=== PATIENT | female | born 1950 | race Caucasian/White ===

== ENCOUNTER → 2020-03-23 17:06 | Outpatient (CLI) | payer BC, SELFPAY ==
--- NOTE | ~2020-03-23 | MM_ITS ---
EXAMINATION: MM screening shelly BI w td HISTORY: Screening mammogram TECHNIQUE: Craniocaudal and mediolateral oblique 3-D tomosynthesis images were obtained and synthetic 2-D images were generated. Bilateral rotated lateral cc views. CAD analysis was submitted and interp reted. COMPARISON: 12/20/2018, 11/27/2017 bilateral digital screening mammogram examinations 09/07/2016 diagnostic right digital mammogram and limited right breast ultrasound 08/22/2016 bilateral digital screening mammogram BREAST PARENCHYMAL COMPOSITION: There are scattered areas of fibroglandular density. FINDINGS: There is no evidence of suspicious mass, calcification, or architectural distortion to sugg est malignancy in either breast. There has been no suspicious interval change. IMPRESSION: 1. No mammographic evidence of malignancy. 2. Recommend routine screening mammography in one year. BI-RADS Category 1: Negative Reviewed, dictated and finalized at location A. ENT WORKER
== END ==
PROVIDERS: Visit Provider Obstetrics & Gynecology Gynecology
DX: Z12.31 Encounter for screening mammogram for malignant neoplasm of breast (principal)
CPT/HCPCS: 77063; 77067

== ENCOUNTER → 2020-06-11 13:22 | Outpatient (CLI) | payer BC, SELFPAY ==
--- NOTE | ~2020-06-11 | DEXA_ITS ---
Bone Density Report Name: Elva Magaña Age: 70 Sex: Female Ethnicity: White Date of : 1950 Indication: osteopenia; monitoring treatment; hyperparathyroidism; height loss; postmenopausal Referring Provider: DEEPAK, LAWSON Study: Bone densitometry was performed. Exam Date: June 11, 2020 Accession number: [id number] Bone Density: Region BMD T-score Z-score Classification AP Spine (L1-L4) 0.935 -1.0 1.2 Normal Femoral Neck (Left) 0.677 -1.5 0.4 Osteopenia Total Hip (Left) 0.790 -1.2 0.4 Osteopenia Femoral Neck (Right) 0.651 -1.8 0.1 Osteopenia Total Hip (Right) 0.797 -1.2 0.4 Osteopenia Total Hip Mean 0.794 -1.2 0.4 Osteopenia World Health Organization criteria for BMD impression classify patients as: Normal (T-score at or above -1.0), Osteopenia (T-score between -1.0 and -2.5), or Osteoporosis (T-score at or below -2.5). 10-year Fracture Risk: FRAX not reported because: Treated for osteoporosis Previous Exams: Region Exam Age BMD T-score BMD Change BMD Change Date g/cm2 vs Baseline vs Previous AP Spine(L1-L4) 06/11/2020 70 0.935 -1.0 0.171* 0.035* 04/18/2018 68 0.900 -1.3 0.136* 0.029* 04/12/2016 66 0.871 -1.6 0.107* 0.046* 10/28/2013 63 0.825 -2.0 0.061* 0.052* 10/17/2011 61 0.773 -2.5 0.009 -0.026* 07/10/2009 59 0.799 -2.3 0.035* 0.035* 06/02/2008 58 0.764 -2.6 Total Hip(Left) 06/11/2020 70 0.790 -1.2 0.076* 0.034* 04/18/2018 68 0.756 -1.5 0.041* -0.001 04/12/2016 66 0.756 -1.5 0.042* 0.023 10/28/2013 63 0.733 -1.7 0.019 0.007 10/17/2011 61 0.726 -1.8 0.012 0.002 07/10/2009 59 0.724 -1.8 0.009 0.009 06/02/2008 58 0.714 -1.9 Total Hip(Right) 06/11/2020 70 0.797 -1.2 0.072* 0.025 04/18/2018 68 0.773 -1.4 0.047* -0.007 04/12/2016 66 0.779 -1.3 0.054* 0.024 10/28/2013 63 0.755 -1.5 0.030* -0.006 10/17/2011 61 0.761 -1.5 0.036* 0.003 07/10/2009 59 0.758 -1.5 0.033* 0.033* 06/02/2008 58 0.726 -1.8 *Denotes significance at 95% confidence level, LSC for AP Spine = 0.022 g/cm2, LSC for Total Hip = 0.027 g/cm2 Clinical Information Provided by Patient: Tha hollis
== END ==
PROVIDERS: Visit Provider Nurse Practitioner
DX: Z78.0 Asymptomatic menopausal state (principal); M85.89 Other specified disorders of bone density and structure, multiple sites
CPT/HCPCS: 77080

== ENCOUNTER 2021-02-10 11:06 | Outpatient (CLI) | payer BC, SELFPAY ==
--- NOTE | ~2021-02-10 | NM_ITS ---
EXAMINATION: NM parathyroid w imaging DATE: 02/10/2021 14:31 INDICATION: Hyperparathyroidism TECHNIQUE: 20.5 mCi Tc99m tetrofosmin (Myoview) was administered by intravenous route. Anterior image s of the neck were obtained at 10 minutes and 2 hours. Additional delayed SPECT images were obtained and reconstructed in axial, coronal and sagittal planes.. COMPARISON: None. FINDINGS/IMPRESSION: There is no focus of persistent activity in the area of the thyroid or mediastinum to suggest parathy roid adenoma. Reviewed, dictated and finalized at location A.
== END 2021-02-10 11:07 | disposition home or self-care (01) ==
LOC: ANHIMG 11:06
PROVIDERS: Visit Provider Internal Medicine Endocrinology, Diabetes & Metabolism
DX: E21.3 Hyperparathyroidism, unspecified (principal); M81.0 Age-related osteoporosis without current pathological fracture; R79.89 Other specified abnormal findings of blood chemistry
CPT/HCPCS: 78070; A9500

== ENCOUNTER → 2021-05-04 15:16 | Outpatient (CLI) | payer BC, SELFPAY ==
--- NOTE | ~2021-05-04 | MM_ITS ---
EXAMINATION: MM screening shelly BI w td HISTORY: Screening mammogram, family history of breast cancer in her sister. TECHNIQUE: Craniocaudal and mediolateral oblique 3-D tomosynthesis images were obtained and synthetic 2-D images were generated. CAD analysis was submitted and interpreted. COMPARISON: 03/23/2020, 12/20/2018, 11/27/2017 BREAST PARENCHYMAL COMPOSITION: The breasts are heterogeneously dense, which may obscure small masses . FINDINGS: There is no evidence of suspicious mass, calcification, or architectural distortion to sugg est malignancy in either breast. There has been no suspicious interval change. IMPRESSION: 1. No mammographic evidence of malignancy. 2. Recommend routine screening mammography in one year. BI-RADS Category 1: Negative Reviewed, dictated and finalized at location A. STUD RIVETER
== END ==
PROVIDERS: Visit Provider Nurse Practitioner
DX: Z12.31 Encounter for screening mammogram for malignant neoplasm of breast (principal)
CPT/HCPCS: 77063; 77067

== ENCOUNTER → 2022-08-04 10:38 | Outpatient (CLI) | payer BC, SELFPAY ==
--- NOTE | ~2022-08-04 | MM_ITS ---
EXAMINATION: MM screening shelly BI w td HISTORY: Screening TECHNIQUE: Craniocaudal and mediolateral oblique 3-D tomosynthesis images were obtained and synthetic 2-D images were generated. CAD analysis was submitted and interpreted. COMPARISON: Comparison to multiple prior studies sequentially, with oldest reviewed study dated 08/22. BREAST PARENCHYMAL COMPOSITION: Breast composed of scattered areas of fibroglandular density FINDINGS: There is no evidence of suspicious mass, calcification, or architectural distortion to sugg est malignancy in either breast. There has been no suspicious interval change. IMPRESSION: 1. No mammographic evidence of malignancy. 2. Recommend routine screening mammography in one year. BI-RADS Category 1: Negative Reviewed, dictated and finalized at location A.
--- NOTE | ~2022-08-04 | DEXA_ITS ---
Bone Density Report Name: NORTH DIAS Age: 72 Sex: Female Ethnicity: White Date of : 1950 Indication: osteopenia; postmenopausal; monitoring treatment; Referring Provider: DEEPAK, LAWSON Study: Bone densitometry was performed. Exam Date: August 04, 2022 Accession number: [id number] Bone Density: Region BMD T-score Z-score Classification AP Spine (L1-L4) 1.009 -0.3 2.0 Normal Femoral Neck (Left) 0.681 -1.5 0.5 Osteopenia Total Hip (Left) 0.813 -1.1 0.7 Osteopenia Femoral Neck (Right) 0.675 -1.6 0.5 Osteopenia Total Hip (Right) 0.824 -1.0 0.8 Normal Total Hip Mean 0.819 -1.1 0.8 Osteopenia World Health Organization criteria for BMD impression classify patients as: Normal (T-score at or above -1.0), Osteopenia (T-score between -1.0 and -2.5), or Osteoporosis (T-score at or below -2.5). 10-year Fracture Risk: FRAX not reported because: Treated for osteoporosis Previous Exams: Region Exam Age BMD T-score BMD Change BMD Change Date g/cm2 vs Baseline vs Previous AP Spine(L1-L4) 08/04/2022 72 1.009 -0.3 0.245* 0.074* 06/11/2020 70 0.935 -1.0 0.171* 0.035* 04/18/2018 68 0.900 -1.3 0.136* 0.029* 04/12/2016 66 0.871 -1.6 0.107* 0.046* 10/28/2013 63 0.825 -2.0 0.061* 0.052* 10/17/2011 61 0.773 -2.5 0.009 -0.026* 07/10/2009 59 0.799 -2.3 0.035* 0.035* 06/02/2008 58 0.764 -2.6 Total Hip(Left) 08/04/2022 72 0.813 -1.1 0.098* 0.022 06/11/2020 70 0.790 -1.2 0.076* 0.034* 04/18/2018 68 0.756 -1.5 0.041* -0.001 04/12/2016 66 0.756 -1.5 0.042* 0.023 10/28/2013 63 0.733 -1.7 0.019 0.007 10/17/2011 61 0.726 -1.8 0.012 0.002 07/10/2009 59 0.724 -1.8 0.009 0.009 06/02/2008 58 0.714 -1.9 Total Hip(Right) 08/04/2022 72 0.824 -1.0 0.098* 0.027 06/11/2020 70 0.797 -1.2 0.072* 0.025 04/18/2018 68 0.773 -1.4 0.047* -0.007 04/12/2016 66 0.779 -1.3 0.054* 0.024 10/28/2013 63 0.755 -1.5 0.030* -0.006 10/17/2011 61 0.761 -1.5 0.036* 0.003 07/10/2009 59 0.758 -1.5 0.033* 0.033* 06/02/2008 58 0.726 -1.8 *Denotes significance at 95% confidence level, LSC for AP Spine = 0.022 g/cm2, L
== END ==
PROVIDERS: PCP Nurse Practitioner; Visit Provider Nurse Practitioner
DX: Z12.31 Encounter for screening mammogram for malignant neoplasm of breast (principal); Z78.0 Asymptomatic menopausal state; M85.89 Other specified disorders of bone density and structure, multiple sites
CPT/HCPCS: 77063; 77067; 77080

== ENCOUNTER 2023-07-02 13:28 | Emergency (ER) | payer BC, SELFPAY ==
--- NOTE | ~2023-07-02 | XR_ITS ---
EXAMINATION: XR finger 1st RT min 2V DATE: 07/02/2023 13:43 INDICATION: Right thumb pain and injury. TECHNIQUE: 3 views of right thumb were obtained. COMPARISON: None. FINDINGS: Bone alignment is normal. There are chip fractures of tuft of first distal phalanx. There i s mild osteoarthritis of first carpometacarpal joint, first metacarpophalangeal joint, and first inte rphalangeal joint. IMPRESSION: 1. Chip fractures of tuft of first distal phalanx. Reviewed, dictated and finalized at location A. TAL MEDIA BUYER
[2023-07-02 13:35] VITALS: BP 151/83; PULSE 72; RESP 16; TEMP 36.9; O2SAT 100
--- NOTE | 2023-07-02 14:03 | ED.EXTPRO ---
HPI - Extremity Problem General Chief complaint: Extremity Injury, Upper Stated complaint: Bruised Thumb Time Seen by Provider: 07/02/23 13:52 Source: patient and RN notes reviewed Mode of arrival: ambulatory Limitations: no limitations History of Present Illness HPI Narrative: Patient presents to today complaining of a right thumb injury. Two days ago she tripped and fell in her garage, jamming her right thumb on the cement. She denies any current pain, but she has some bruising and discoloration at the tip of her finger in on the fingernail and wanted to come in for evaluation. She has been applying some Neosporin at the base of the fingernail. Related Data Home Medications Medication Instructions Recorded Confirmed denosumab 60 mg/mL subcutaneous 60 mg subcut [id number] 06/12/19 07/28/21 syringe (Prolia) cholecalciferol (vitamin D3) 50 50 mcg PO DAILY 07/28/21 07/28/21 mcg (2,000 unit) tablet estradiol 10 mcg vaginal tablet 10 mcg vaginal 2XW 07/28/21 07/28/21 (Vagifem) Allergies Allergy/AdvReac Type Severity Reaction Status Date / Time codeine Allergy Unknown Verified 01/07/14 09:27 shellfish derived Allergy Unknown Verified 01/07/14 09:32 SHELLFISH Allergy Mild Uncoded 06/27/13 17:43 White Fish Allergy Mild Uncoded 06/27/13 15:21 Review of Systems Review of Systems: CONSTITUTIONAL: Denies body aches, fever, chills, or sweats. EYES: Denies visual changes, redness, or discharge. ENT: Denies rhinorrhea, congestion, sore throat, or otalgia. CARDIOVASCULAR: Denies chest pain, palpitations, or edema. RESPIRATORY: Denies cough or dyspnea. GASTROINTESTINAL: Denies abdominal pain, nausea, vomiting, or diarrhea. GENITOURINARY: Denies dysuria or hematuria. SKIN: Denies rash, itching, or wounds. MUSCULOSKELETAL: + right thumb injury NEUROLOGIC: Denies headache, numbness, tingling, or weakness. PSYCH: Denies depression or anxiety. [facility] Past Medical History Medical History (Updated 07/02/23 @ 14:10 by Ramona Arreguin, CERTIFIED NUTRITIONIST, BC) Headache Osteoporosis Family History Family History Other Family history of cardiovascular disease Family history of osteoporosis Hypertension Social History Social History Smoking status: Never smoker Alcohol intake: current Comments At time of signature, I have reviewed and agree with nursing past medical, surgical, social and family history unless otherwise noted. Please see nursing chart for further information. There is no relevant family history pertinent to the presenting complaint Exam Narrative: GENERAL: Well-appearing, well-nourished, and in no acute distress. HEAD: Normocephalic, atraumatic. EYES: EOMI. No redness or drainage. Conjunctivae normal. ENT: Mucous membranes pink and moist. NECK: Normal AROM. CHEST: No respiratory distress. EXTREMITIES: Right thumb: Ecchymosis and edema to the distal phalanx. No tenderness. Distal sensation is intact. Capillary refill normal. She has some passive range of motion, but active range of motion is limited due to swelling. Fingernail has been slightly jammed into the cuticle. There is some dried blood at the base of the fingernail. The fingernail does still seem to be attached to the nail bed. Slight erythema to the cuticle area SKIN: Warm, dry, no rash. Capillary refill normal. Normal skin turgor. NEURO: No focal deficits. Alert and oriented x3. Gait steady. PSYCH: Normal affect. No signs of depression or anxiety. Course Course Level of Care: Express Care Visit Vital Signs Vital signs: Vital Signs Temperature 98.5 F 07/02/23 13:35 Pulse Rate 72 07/02/23 13:35 Respiratory Rate 16 07/02/23 13:35 Blood Pressure 151/83 H 07/02/23 13:35 Pulse Oximetry 100 07/02/23 13:35 Temperature 98.5 F 07/02/23 13:35 Pulse Rate 72 07/02/23 13:35 Respi
== END 2023-07-02 14:13 | disposition home or self-care (01) ==
PROVIDERS: Emergency Provider Nurse Practitioner
DX: S62.524A Nondisplaced fracture of distal phalanx of right thumb, initial encounter for closed fracture (principal); W01.0XXA Fall on same level from slipping, tripping and stumbling without subsequent striking against object, initial encounter; Y92.008 Other place in unspecified non-institutional (private) residence as the place of occurrence of the external cause
CPT/HCPCS: 73140; 99213; G0463

== ENCOUNTER 2023-10-25 14:12 | Outpatient (CLI) | payer BC, SELFPAY ==
--- NOTE | ~2023-10-25 | MM_ITS ---
EXAMINATION: MM screening shelly BI w td HISTORY: Screening mammogram, family history of breast cancer in her sister. TECHNIQUE: Craniocaudal and mediolateral oblique 3-D tomosynthesis images were obtained and synthetic 2-D images were generated. CAD analysis was submitted and interpreted. COMPARISON: 08/04/2022: 422, 03/23/2020 BREAST PARENCHYMAL COMPOSITION:Dense: The breasts are heterogeneously dense, which may obscure small masses. FINDINGS: No suspicious mass, calcification, or architectural distortion are identified in either michael ast to suggest malignancy. There has been no suspicious interval change. IMPRESSION: No mammographic evidence of malignancy. Recommend routine screening mammography in one year. BI-RADS Category 1: Negative Reviewed, dictated and finalized at location .
== END 2023-10-25 14:13 ==
PROVIDERS: Visit Provider Nurse Practitioner
DX: Z12.31 Encounter for screening mammogram for malignant neoplasm of breast (principal)
CPT/HCPCS: 77063; 77067

== ENCOUNTER 2024-08-07 10:51 | Outpatient (CLI) | payer BC, SELFPAY ==
--- NOTE | ~2024-08-07 | DEXA_ITS ---
Bone Density Report Name: NORTH DIAS Age: 74 Sex: Female Ethnicity: White Date of : 1950 Indication: postmenopausal; screening for osteoporosis; height loss; Referring Provider: DEEPAK, LAWSON Study: Bone densitometry was performed. Exam Date: August 07, 2024 Accession number: [id number] Bone Density: Region BMD T-score Z-score Classification AP Spine(L1-L4) 0.923 -1.1 1.4 Osteopenia Femoral Neck (Left) 0.636 -1.9 0.2 Osteopenia Total Hip (Left) 0.738 -1.7 0.2 Osteopenia Femoral Neck (Right) 0.644 -1.8 0.3 Osteopenia Total Hip (Right) 0.808 -1.1 0.8 Osteopenia Total Hip Mean 0.773 -1.4 0.5 Osteopenia World Health Organization criteria for BMD impression classify patients as: Normal (T-score at or above -1.0), Osteopenia (T-score between -1.0 and -2.5), or Osteoporosis (T-score at or below -2.5). 10-year Fracture Risk: FRAX not reported because: Treated for osteoporosis Clinical Information Provided by Patient: Is being treated for osteoporosis Has used the following medications: Boniva (i.e. ibandronate), Fosamax (i.e. alendronate), Prolia (i.e. denosumab), Vitamin D Patient maximum height was 60 Menopause Age: 48 Drinks caffeinated beverages Onset of menses at age 12 Number of children 1 Impression: The patient has low bone mass, based on the Left Femoral Neck T-score. Discussion: It is important to ask patients whether they are taking their medications and to encourage continued and appropriate compliance with their osteoporosis therapies to reduce fracture risk. It is also important to review their risk factors and encourage appropriate calcium and vitamin D intakes, exercise, fall prevention and other lifestyle measures. Follow-Up: Consider a repeat BMD and Vertebral Fracture Assessment (VFA) exam in 2 years or sooner if medically necessary, to reassess this patient's status. Reported by: TYLER on 08/07/2024 11:32:00 AM. Reviewed, dictated and finalized at location AFreda [facility]
--- OUTSIDE RECORDS SUMMARY | 2024-08-07 12:35 | XMS_ITS | Clinical Summary ---
Author Organization [facility] [address] Address [address] [place] [id number] Care Team Providers Care Validation Technician Name Role Phone Calvin Fung MD Primary Care Provider [phone] Allergies Active Allergy Reactions Criticality Noted Date Comments Codeine Nausea and Vomiting Low 08/04/2023 Shellfish Derived Delirium Medium 08/04/2023 Medications alendronate (FOSAMAX) 70 mg tabletIndicatio ns:Osteopenia of multiple sites Take 1 Tablet by mouth every 7 days. Active cholecalciferol , Vitamin D3, 50 mcg (2,000 unit) TabletIndicatio ns:Osteopenia of multiple sites,Vitamin D deficiency Take 3,000 Units by mouth daily. Active estradioL (VAGIFEM) 10 mcg tablet Insert 10 mcg vaginally daily at bedtime. Active Active Problems Problem Noted Date Diagnosed Date Rotator cuff tendinitis, right 01/24/2024 Encounters Date Type Department Care Team Description 07/17/2024 External Device Data [facility] ABSTRACTION Provider, Abstract 07/06/2024 External Device Data [facility] ABSTRACTION Provider, Abstract 07/05/2024 External Device Data [facility]STRACTION Provider, Abstract 07/03/2024 External Device Data [facility]STRACTION Provider, Abstract 06/19/2024 External Device Data [facility]STRACTION Provider, Abstract 05/28/2024 External Device Data [facility]STRACTION Provider, Abstract 05/22/2024 External Device Data [facility] ABSTRACTION Provider, Abstract 05/22/2024 External Device Data [facility] ABSTRACTION Provider, Abstract from Last 3 Months Family History Medical History Relation Name Comments No Known Problems Father No Known Problems Mother Relation Name Status Comments Father Mother Social History Tobacco Use Types Packs/Day Years Used Date Smoking Tobacco: Never Smokeless Tobacco: Never Tobacco Cessation:Counseling Given: Not Answered Alcohol Use Standard Drinks/Week Comments Not Currently 0 (1 standard drink = 0.6 oz pur e alcohol) rare Comments Unknown Sex and Gender Information Value Date Recorded Sex Assigned at Not on file Legal Sex Female 8:42 AM CDT Gender Identity Not on file Sexual Orientation Not on file Last Filed Vital Signs Vital Sign Reading Time Taken Comments Blood Pressure 127/76 08/04/2023 10:02 AM CDT Pulse 61 08/04/2023 10:02 AM CDT Temperature 37 C (98.6 F) 08/04/2023 10:02 AM CDT Respiratory Rate 16 08/04/2023 10:02 AM CDT Oxygen Saturation 98% 08/04/2023 10:02 AM CDT Inhaled Oxygen Concentration - - Weight 43.5 kg (96 lb) 01/24/2024 10:14 AM CDT Height 152.4 cm (5') 01/24/2024 10:14 AM CDT Body Mass Index 18.75 01/24/2024 10:14 AM CDT Plan of Treatment Health Maintenance Due Date Last Done Comments DTAP/TDAP/TD VACCINES (1 - Tdap) 02/06/1967 PNEUMOCOCCAL VACCINE 50+ YEARS (1 of 1 - PCV) 02/06/19 98 ZOSTER VACCINE (1 of 2) 02/06/1998 OSTEOPOROSIS SCREENING 02/06/2013 RSV VACCINE (60+ or ) (1 - 1-dose 75+ series) 02/06/2023 INFLUENZA VACCINE (#1) 2023 Preventative Visit- Commercial 05/01/2024 08/04/2023 Insurance [facility] [employer] Care Teams Validation Technician Relationship Specialty [place] [address] [place] [address] [id number] PCP - General Internal Medicine 08/04/23
== END 2024-08-07 10:52 | disposition home or self-care (01) ==
LOC: ANHIMG 10:56
PROVIDERS: Visit Provider Nurse Practitioner
DX: M85.89 Other specified disorders of bone density and structure, multiple sites (principal); Z78.0 Asymptomatic menopausal state
CPT/HCPCS: 77080

== ENCOUNTER 2024-10-30 14:00 | Outpatient (RCR) | payer BC, SELFPAY ==
--- NOTE | 2024-08-09 11:47 | OPREHPOC ---
Outpatient Therapy Plan of Care This is a Multidisciplinary Plan of Care that may contain components documented by all disciplines (PT, OT, and ST.) PT Problem 1 PT Problem #1 Knowledge Deficit PT Goal 1 Goal / Goal Update 1. Patient will perform independent HEP Target Visit 3 PT Problem 2 PT Problem #2 Impaired Strength PT Goal 1 Goal / Goal Update 1. Improve pelvic floor strength to 4/5 to reduce incontinence 2. Improve pelvic floor endurance to 10 seconds to reduce incontinence 3. Improve hip abduction and extension to 4+/5 kesha Target Visit 5 PT Problem 3 PT Problem #3 Impaired Functional ADLs PT Goal 1 Goal / Goal Update 1. Patient will report no fecal or urinary incontinence for at least 1 month Target Visit 5
--- NOTE | 2024-08-09 11:47 | PTOPEVAL1 ---
Assessment and note entered by Sheri Hart DPT Evaluation Information Assessment Status Evaluation Diagnosis r15.9 ICD-10 Condition Codes (PT) Weakness R53.1,Stress incontinence N39.3 Subjective Information Pt reports fecal incontinence that started within the last year, also notices a smear after wiping. Frequency is increasing. Also reports gas incontinence and feels urgency for BM. Voids 7-8 times a day and none at night. Urinary incontinence once a week, does have to change underwear. Can hold urge to void up to 10 minutes and denies pain with urination. BM once daily, rarely 2-3 times a day and no pain. Fecal incontinence occurs typically 2 times a week and is a small amount. Pt reports a lot of frustration with incontinence. Does report pelvic pain and pain with intercourse that may be menopause related. Pt has had 1 delivery. 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 Diet: yogurt and fruit in the morning with 12 ounces of coffee, light lunch and dinner typically is some kind of meat, salad, bread. might snack on nuts or chips. drinks water the rest of the day , rarely alcohol. Patient goal: control bowels and find out why it's happening Returns to MD in 2 months. Reported Pain Level Pain Score 0: Self Report Assessment PT Clinical Summary The patient is presenting to skilled therapy with a history of worsening fecal incontinence and reports of weekly urinary incontinence. She presents with decreased pelvic floor strength and endurance, as well as decreased hip strength. These impairments are contributing to her fecal and urinary incontinence and she will benefit from skilled therapy to reduce incontinence and restore function. Plan of Care Interventions Manual Therapy,Neuro Re-education,Patient/ Caregiver Education,Therapeutic Activities, Therapeutic Exercise PT Services Indicated Yes Treatment Frequency and 1 time a week for 5 visits Duration These treatments will address the objective and functional deficits as defined above. The patient will be advanced safely and appropriately in order for the patient to progress towards his/her prior level of function. Additional exercises will be introduced and as well as a comprehensive home exercise program upon discharge, if needed, ?to ensure carryover of functional gains achieved in the clinic. This treatment plan has been reviewed and agreement upon by the patient.
--- NOTE | 2024-09-06 09:44 | OPREHPOC ---
Outpatient Therapy Plan of Care This is a Multidisciplinary Plan of Care that may contain components documented by all disciplines (PT, OT, and ST.) PT Problem 1 PT Problem #1 Knowledge Deficit PT Goal 1 Goal / Goal Update 1. Patient will perform independent HEP Target Visit 3 Progress Met PT Problem 2 PT Problem #2 Impaired Strength PT Goal 1 Goal / Goal Update 1. Improve pelvic floor strength to 4/5 to reduce incontinence 2. Improve pelvic floor endurance to 10 seconds to reduce incontinence 3. Improve hip abduction and extension to 4+/5 kesha update 09/06/24 1. improved to 3/5 2. no change 3. improved Target Visit 6 Progress Partially Met PT Problem 3 PT Problem #3 Impaired Functional ADLs PT Goal 1 Goal / Goal Update 1. Patient will report no fecal or urinary incontinence for at least 1 month update 09/06/24 1. no urinary for 1 week, no fecal for several weeks until recently Target Visit 6 Progress Partially Met
--- NOTE | 2024-09-06 09:44 | PTOPPROG ---
Assessment and note entered by Sheri Hart DPT Evaluation Information Assessment Status Progress Diagnosis r15.9 ICD-10 Condition Codes (PT) Weakness R53.1,Stress incontinence N39.3 Subjective Information Pt reports she is noticing some incomplete bowel emptying over the last 2 days but previously had gone a little while without an issue. No other fecal smearing this week. Still reports limited ability to hold urge to void. No urinary incontinence in the last week. Does think things are improving some with therapy. Assessment PT Clinical Summary The patient has made some progress in therapy overall. She reports no urinary incontinence over the last week and no fecal smearing for several weeks until the last 2 days. She demonstrates improved hip and pelvic floor strength and reports no pain with pelvic exam this session. Due to her progress but continued intermittent incontinence, she will benefit from further therapy to safely return to prior level. PFIQ improved from 16% to 8%. Plan of Care Interventions Manual Therapy,Neuro Re-education,Patient/ Caregiver Education,Therapeutic Activities, Therapeutic Exercise PT Services Indicated Yes Treatment Frequency and 1 visit in 3-4 weeks Duration These treatments will address the objective and functional deficits as defined above. The patient will be advanced safely and appropriately in order for the patient to progress towards his/her prior level of function. Additional exercises will be introduced and as well as a comprehensive home exercise program upon discharge, if needed, ?to ensure carryover of functional gains achieved in the clinic. This treatment plan has been reviewed and agreement upon by the patient.
--- NOTE | 2024-10-04 11:46 | OPREHPOC ---
Outpatient Therapy Plan of Care This is a Multidisciplinary Plan of Care that may contain components documented by all disciplines (PT, OT, and ST.) PT Problem 1 PT Problem #1 Knowledge Deficit PT Goal 1 Goal / Goal Update 1. Patient will perform independent HEP Target Visit 3 Progress Met PT Problem 2 PT Problem #2 Impaired Strength PT Goal 1 Goal / Goal Update 1. Improve pelvic floor strength to 4/5 to reduce incontinence 2. Improve pelvic floor endurance to 10 seconds to reduce incontinence 3. Improve hip abduction and extension to 4+/5 kesha update 09/06/24 1. improved to 3/5 2. no change 3. improved update 10/04/24 1. no change from last time 2. improved to 7 3. met Target Visit 6 Progress Partially Met PT Problem 3 PT Problem #3 Impaired Functional ADLs PT Goal 1 Goal / Goal Update 1. Patient will report no fecal or urinary incontinence for at least 1 month update 09/06/24 1. no urinary for 1 week, no fecal for several weeks until recently update 10/04/24 1. 1 time a week urinary, 2 times per week fecal Target Visit 6 Progress Partially Met
--- NOTE | 2024-10-04 11:47 | PTOPPROG ---
Assessment and note entered by Sheri Hart DPT Evaluation Information Assessment Status Progress Diagnosis r15.9 ICD-10 Condition Codes (PT) Weakness R53.1,Stress incontinence N39.3 Subjective Information Incontinence 1 time a week and fecal smearing 2 times a week recently. Has also been trying to prop her feet up on a stool with BM. Thinks the exercises have helped some Assessment PT Clinical Summary The patient has continued to make some progress and demonstrates improved hip strength and pelvic floor endurance. She reports continued fecal incontinence/smearing 2 times a week and urinary incontinence 1 time per week and will benefit from further therapy to reduce incontinence and restore full function. Plan of Care Interventions Manual Therapy,Neuro Re-education,Patient/ Caregiver Education,Therapeutic Activities, Therapeutic Exercise PT Services Indicated Yes Treatment Frequency and 1 visit every other week x 3 visits Duration These treatments will address the objective and functional deficits as defined above. The patient will be advanced safely and appropriately in order for the patient to progress towards his/her prior level of function. Additional exercises will be introduced and as well as a comprehensive home exercise program upon discharge, if needed, ?to ensure carryover of functional gains achieved in the clinic. This treatment plan has been reviewed and agreement upon by the patient.
== END 2024-11-07 23:59 | disposition home or self-care (01) ==
LOC: ANHPT 14:00
DX: R15.9 Full incontinence of feces (principal)
CPT/HCPCS: 97112; 97161; 97530

== ENCOUNTER 2024-11-07 10:27 | Outpatient (CLI) | payer BC, SELFPAY ==
--- NOTE | ~2024-11-07 | MM_ITS ---
EXAMINATION: MM screening shelly BI w td HISTORY: Screening mammogram, family history of breast cancer in her sister. TECHNIQUE: Craniocaudal and mediolateral oblique 3-D tomosynthesis images were obtained and synthetic 2-D images were generated. CAD analysis was submitted and interpreted. COMPARISON: 10/25/2023, 08/04/2022, 05/04/2021 BREAST PARENCHYMAL COMPOSITION:Dense: The breasts are heterogeneously dense, which may obscure small masses. FINDINGS: No suspicious mass, calcification, or architectural distortion are identified in either michael ast to suggest malignancy. There has been no suspicious interval change. IMPRESSION: No mammographic evidence of malignancy. Recommend routine screening mammography in one year. BI-RADS Category 1: Negative Reviewed, dictated and finalized at location .
== END 2024-11-07 10:28 | disposition home or self-care (01) ==
PROVIDERS: Visit Provider Nurse Practitioner
DX: Z12.31 Encounter for screening mammogram for malignant neoplasm of breast (principal)
CPT/HCPCS: 77063; 77067

== ENCOUNTER 2024-12-04 13:15 | Outpatient (RCR) | payer BC, SELFPAY ==
--- NOTE | 2024-11-13 10:54 | OPREHPOC ---
Outpatient Therapy Plan of Care This is a Multidisciplinary Plan of Care that may contain components documented by all disciplines (PT, OT, and ST.) PT Problem 1 PT Problem #1 Knowledge Deficit PT Goal 1 Goal / Goal Update 1. Patient will perform independent HEP Target Visit 3 Progress Met PT Problem 2 PT Problem #2 Impaired Strength PT Goal 1 Goal / Goal Update 1. Improve pelvic floor strength to 4/5 to reduce incontinence 2. Improve pelvic floor endurance to 10 seconds to reduce incontinence 3. Improve hip abduction and extension to 4+/5 kesha update 09/06/24 1. improved to 3/5 2. no change 3. improved update 10/04/24 1. no change from last time 2. improved to 7 3. met update 11/13/24 1. no change from last time 2. no change from last time Target Visit 12 Progress Partially Met PT Problem 3 PT Problem #3 Impaired Functional ADLs PT Goal 1 Goal / Goal Update 1. Patient will report no fecal or urinary incontinence for at least 1 month update 09/06/24 1. no urinary for 1 week, no fecal for several weeks until recently update 10/04/24 1. 1 time a week urinary, 2 times per week fecal update 11/13/24 1. 1 time a week urinary, no fecal for several weeks until recently Target Visit 12 Progress Partially Met
--- NOTE | 2024-11-13 10:54 | PTOPPROG ---
Assessment and note entered by Sheri Hart DPT Evaluation Information Assessment Status Progress Diagnosis r15.9 ICD-10 Condition Codes (PT) Weakness R53.1,Stress incontinence N39.3 Subjective Information Urinary incontinence 1 time a week. Fecal smearing yesterday but can't remember the time before that so thinks it was getting better. Assessment PT Clinical Summary The patient has made some continued progress in therapy and demonstrates improved hip strength, and reports her frequency of fecal smearing has decreased. She continues to have urinary incontinence about once a week. She also continues to have difficulty performing pelvic floor contraction consistently without compensation. She will benefit from further therapy to address correct muscle engagement to decrease incontinence and improve function. The patient was educated this date on self tactile feedback at home to decrease compensation with strengthening activities. Plan of Care Interventions Manual Therapy,Neuro Re-education,Patient/ Caregiver Education,Therapeutic Activities, Therapeutic Exercise PT Services Indicated Yes Treatment Frequency and 1 time a week for 3 more visits Duration These treatments will address the objective and functional deficits as defined above. The patient will be advanced safely and appropriately in order for the patient to progress towards his/her prior level of function. Additional exercises will be introduced and as well as a comprehensive home exercise program upon discharge, if needed, ?to ensure carryover of functional gains achieved in the clinic. This treatment plan has been reviewed and agreement upon by the patient.
--- NOTE | 2024-12-04 13:52 | OPREHPOC ---
Outpatient Therapy Plan of Care This is a Multidisciplinary Plan of Care that may contain components documented by all disciplines (PT, OT, and ST.) PT Problem 1 PT Problem #1 Knowledge Deficit PT Goal 1 Goal / Goal Update 1. Patient will perform independent HEP Target Visit 3 Progress Met PT Problem 2 PT Problem #2 Impaired Strength PT Goal 1 Goal / Goal Update 1. Improve pelvic floor strength to 4/5 to reduce incontinence 2. Improve pelvic floor endurance to 10 seconds to reduce incontinence 3. Improve hip abduction and extension to 4+/5 kesha update 09/06/24 1. improved to 3/5 2. no change 3. improved update 10/04/24 1. no change from last time 2. improved to 7 3. met update 11/13/24 1. no change from last time 2. no change from last time update 12/04/24 1. no change 2. met Target Visit 12 Progress Partially Met PT Problem 3 PT Problem #3 Impaired Functional ADLs PT Goal 1 Goal / Goal Update 1. Patient will report no fecal or urinary incontinence for at least 1 month update 09/06/24 1. no urinary for 1 week, no fecal for several weeks until recently update 10/04/24 1. 1 time a week urinary, 2 times per week fecal update 11/13/24 1. 1 time a week urinary, no fecal for several weeks until recently update 12/04/24 1. 2 times urinary, no fecal Target Visit 12 Progress Partially Met
--- NOTE | 2024-12-04 13:52 | PTOPDC ---
Assessment and note entered by Sheri Hart DPT Evaluation Information Assessment Status Discharge Diagnosis r15.9 ICD-10 Condition Codes (PT) Weakness R53.1,Stress incontinence N39.3 Subjective Information Urinary incontinence 2 times recently, no fecal smearing in the last week. Has been trying to work on urge suppression strategies. Reported Pain Level Pain Score 0: Self Report Assessment PT Clinical Summary The patient has continued to make some progress in therapy, she reports no fecal smearing over the last week. Two instances of incontinence but has been working on urge suppression strategies. She also demonstrates improved pelvic floor endurance. Due to her progress and independence with HEP, plan for discharge at this time. She has been educated to continue HEP and follow up with MD and /or PT as needed. Plan of Care PT Services Indicated No
== END 2024-12-06 12:05 | disposition home or self-care (01) ==
LOC: ANHPT 13:15
DX: R15.9 Full incontinence of feces (principal)
CPT/HCPCS: 97112; 97530